=== PATIENT | male | born 1955 | race Caucasian/White ===

== ENCOUNTER 2021-03-03 07:11 | Outpatient (CLI) | payer MEDICARE, SELFPAY ==
--- NOTE | 2021-03-03 07:15 | XR_ITS ---
WS: [id number] KUB, AP view, 03/03/2021 Clinical Data: KIDNEY STONE Comparison: None. Findings: There is a 0.7 cm calcification overlying the left kidney. Fecal material and air from the colon obsc ures detail over both kidneys. There are probable phleboliths in the true pelvis. Degenerative change and a slight levoscoliosis of the lumbar spine are seen. XR/XR KUB [id number] Impression: Probable small left renal calculus.
== END 2021-03-03 07:12 | disposition home or self-care (01) ==
LOC: RAD 07:18
PROVIDERS: PCP Nurse Practitioner Family; Visit Provider Urology
DX: N20.0 Calculus of kidney (principal)
CPT/HCPCS: 74018; 81003

== ENCOUNTER 2021-06-02 08:26 | Outpatient (CLI) | payer MEDICARE, OTHER, SELFPAY ==
--- NOTE | 2021-06-02 08:30 | XR_ITS ---
WS: [id number] KUB, AP view, 06/02/2021 Clinical Data: URETERAL STONE Comparison: KUB, 03/03/2021. Findings: There is a 0.7 cm calcification overlying the left kidney. The right kidney is obscured by fecal mate rial in colon gas. There are phleboliths in the true pelvis. XR/XR KUB [id number] Impression: Probable left renal calcification.
== END 2021-06-02 08:27 | disposition home or self-care (01) ==
LOC: RAD 08:34
PROVIDERS: PCP Nurse Practitioner Family; Visit Provider Urology
DX: N20.1 Calculus of ureter (principal)
CPT/HCPCS: 74018; G0103

== ENCOUNTER → 2021-06-14 14:52 | Outpatient (BNVA) | payer MEDICARE, OTHER, SELFPAY | PROVIDERS: PCP Nurse Practitioner Family; Visit Provider Nurse Practitioner Family | DX: I10 Essential (primary) hypertension (principal) | CPT/HCPCS: 80048 ==

== ENCOUNTER → 2021-12-09 08:56 | Outpatient (BNVA) | payer MEDICARE, OTHER, SELFPAY | PROVIDERS: PCP Nurse Practitioner Family; Visit Provider Nurse Practitioner Family | DX: I10 Essential (primary) hypertension (principal) | CPT/HCPCS: 80053 ==

== ENCOUNTER → 2022-02-22 12:51 | Outpatient (BNVA) | payer MEDICARE, OTHER, SELFPAY | PROVIDERS: PCP Nurse Practitioner Family; Visit Provider Urology | DX: R97.20 Elevated prostate specific antigen [PSA] (principal); N20.1 Calculus of ureter; C61 Malignant neoplasm of prostate; N20.0 Calculus of kidney | CPT/HCPCS: 81003; 84153 ==

== ENCOUNTER 2022-12-09 21:32 | Emergency (ER) | payer MEDICARE, OTHER, SELFPAY ==
[2022-12-09 21:34] VITALS: BP 208/101; PULSE 74; RESP 18; TEMP 36.3; O2SAT 94; BMI 29.1
--- NOTE | 2022-12-09 21:54 | XRR_ITS ---
PROCEDURE INFORMATION: Exam: XR Chest Exam date and time: 12/09/2022 10:12 PM Age: 67 years old Clinical indication: Other: Syncope TECHNIQUE: Imaging protocol: Radiologic exam of the chest. Views: 1 view. COMPARISON: CR XR KUB [id number] 06/02/2021 8:47 AM FINDINGS: Lungs: Bibasilar calcified granulomas noted. Small focal left basilar opacity. Pleural spaces: No pleural effusion. No pneumothorax. Heart/Mediastinum: No cardiomegaly. Bones/joints: Visualized osseous structures are intact. XR/XR chest 1V portable [id number] IMPRESSION: Small focal left basilar opacity which may reflect atelectasis or infiltrate.
--- NOTE | 2022-12-09 21:55 | ECG_ITS ---
[facility] Test Date: 2022-12-09 Pat Name: Jona Simmons Department: Room: Gender: Male Teacher Tutor: : [id number] Requested By: Toby Rodriguez Order Number: [id number] Arben MD: Curt Vazquez M.D. Measurements Intervals Ora Rate: 73 P: 49 NM: 172 QRS: 20 QRSD: 102 T: 18 QT: 387 QTc: 429 Interpretive Statements SINUS RHYTHM INCOMPLETE RIGHT BUNDLE BRANCH BLOCK [90+ ms QRS DURATION, TERMINAL R IN V1/V2, 40+ ms S IN I/aVL/V4/V5/V6] No previous ECG available for comparison Electronically Signed On 12-09-2022 21:56:34 OPERATING ROOM SURGICAL TECHNICIAN by Curt Vazquez M.D. [id number]
[2022-12-09 22:04] VITALS: BP 152/88; PULSE 76; RESP 18; O2SAT 94
[2022-12-09 22:06] LABS: Basophils # 0.1 10^3/uL (0.0-0.1); Basophils % 1.1 %; Eosinophils # 0.3 10^3/uL (0.0-0.8); Eosinophils % 3.6 %; Hematocrit 40.1 % (42.0-52.0); Hemoglobin 13.3 g/dL (11.7-16.6); Lymphocytes # 1.3 10^3/uL (0.8-4.8); Lymphocytes % 18.2 %; Mean Corpuscular HGB Conc 33.2 g/dL (30.0-36.0); Mean Corpuscular Hemoglobin 31.2 pg (28.0-34.0); Mean Corpuscular Volume 94.1 fl (80-94); Mean Platelet Volume 10.2 fL (7.4-10.4); Monocytes # 0.5 10^3/uL (0.2-0.9); Monocytes % 7.2 %; Neutrophils # 5.01 10^3/uL (1.8-7.7); Neutrophils % 69.6 %; Nucleated Red Blood Cells % 0 %; Platelet Count 203 10^3/cmm (130-400); Red Blood Count 4.26 10^6/uL (4.1-5.3); Red Cell Distribution Width 13.5 % (12.1-15.1); White Blood Count 7.2 10^3/uL (4.0-10.0)
--- NOTE | 2022-12-09 22:08 | ED_ITS ---
HPI - Syncope General: Chief Complaint: Syncope Stated Complaint: SYNCOPE Time Seen by Provider: 12/09/22 21:39 History of Present Illness: 67-year-old male gentleman with a history of a syncopal episode at home. He was sitting in a chair, began to breathe heavily he says. He was having vision problems as well, in which his visual bauman turned white. He woke up on the floor next. Family witnessed the event, and states he was out for about 2 minutes. There was no shaking or tonic-clonic movement. He had a pulse and was breathing through the episode. states that just previous to the episode, he had taken a couple of hits off of a marijuana joint. EMS logged low blood pressures when they stood him up, and encouraged him to come to the emergency department. MD complaint: loss of consciousness and collapsed Onset (ago): minute(s) Duration of episode: 120 -: second(s) Description of event: other Prodromal symptoms: vision changes and shortness of breath Witnessed: Yes - by Bystander Context: at rest Injuries sustained associated with event: none Associated symptoms: Reports short of breath; Deny abdominal pain, chest pain, fever(s), headache(s), nausea, vertigo or weakness History: other Treatments prior to arrival: IV fluids Review of Systems Const: Denies: fever(s) Eyes: Reports: change in vision Card: Denies: chest pain or palpitations Resp: Reports: dyspnea (resolved); Denies: productive cough or non-productive cough GI: Denies: abdominal pain or nausea Neuro: Denies: headache(s) or vertigo [facility] ED PFSH: Medical History Hx of angiography Hx of hepatitis C treatment in 2011 Hypertension Hypertension Prostate cancer Ozzie 4+3 at diagnosis to the thousand 17. PSA was 5.6. No information about FADI or volume. Treated with combination therapy external beam radiation and 2 Lupron injections. Quit the Lupron early due to side effects. Surgical History History of repair of ACL Hx of inguinal hernia repair Hx of tonsillectomy Family History Father , at age 53 CAD (coronary artery disease) Mother , at age 67 CAD (coronary artery disease) Diabetes Social History Smoking and tobacco status: former smoker Alcohol intake: current Alcohol intake frequency: few times a week Marital status: Current occupational status: retired History of recent travel: No Physical Exam Const: COMMON NORMALS: no acute distress and alert GENERAL APPEARANCE: cooperative; not ill appearing and not frail appearing HENMT: COMMON NORMALS: normocephalic, atraumatic and Normal external nose present HEAD & SCALP: normocephalic and atraumatic FACE & SINUS: normal facial exam and face symmetric NOSE: Normal external nose present Eye: COMMON NORMALS: Equal, round and reactive pupils present and EOMs intact bilaterally PUPIL: Yes Equal, round and reactive pupils present Neck/C-Spine: GENERAL: Yes trachea midline Chest: CHEST: Yes Symmetrical chest wall rise Resp: COMMON NORMALS: normal respiratory effort, No retractions, No use of accessory muscles and clear to auscultation bilaterally AUSCULTATION: clear to auscultation bilaterally Cardio: COMMON NORMALS: regular rate and regular rhythm RATE: regular rate RHYTHM: regular rhythm GI: COMMON NORMALS: Normal to inspection, nondistended, normoactive bowel sounds present Extremity: COMMON NORMALS: no pedal edema Neuro: MARIA A COMA SCALE: document GCS findings Maria A coma scale eye opening: Spontaneous Maria A coma scale verbal response: Orientated Maria A coma scale motor response: Obey commands Maria A coma scale total score: 15 SENSORIUM/ORIENTATION: Yes alert COORDINATION/BALANCE: [id number] test normal and yypw-dj-[id number] test normal SPEECH: speech normal GAIT: Yes Unable to assess gait SENSORY EXAM: Yes extremities (intact) MOTOR EXAM: 5/5 motor strength present throughout, no tremor noted and Normal motor muscle tone present throughout COORDINATION: [id number]-[id number] test normal and adpp-lw-xyuw test normal Psych: COMMON NORMALS: speech normal SPEECH: Yes normal speech Skin: COMMON NORMALS: no rashes or lesions noted GENERAL SKIN EXAM: no rashes or lesions noted Course Vital Signs: Vital signs: Vital Signs Temperature 97.4 F L 12/09/22 21:34 Pulse Rate 76 12/09/22 22:04 Respiratory Rate 18 12/09/22 22:04 Blood Pressure 152/88 12/09/22 22:04 Pulse Oximetry 94 02/10/23 22:04 Oxygen Delivery Me thod 12/09/22 22:04 MDM - Syncope Medical Decision Making 67-year-old male with a syncopal episode at home. He has returned to baseline essentially now. Blood pressure is 142/73, he is not tachycardic. Saturations are 92 to 93% on room air. Chest x-ray shows small left basilar atelectasis. His CBC is normal. His BMP is normal. Liver enzymes are normal. His EKG is essentially normal. His troponin is 6. He will be allowed home. He is asymptomatic at this point. Syncope likely due to pleasure to marijuana. Lab Data 12/09/22 21:45 12/09/22 21:45 Radiology Impressions Chest X-Ray 12/09/22 21:54 IMPRESSION: Small focal left basilar opacity which may reflect atelectasis or infiltrate. Laboratory Results WBC 7.2 10^3/uL (4.0-10.0) 12/09/22 21:45 RBC 4.26 10^6/uL (4.1-5.3) 12/09/22 21:45 Hgb 13.3 g/dL (11.7-16.6) 12/09/22 21:45 Hct 40.1 % (42.0-52.0) L 12/09/22 21:45 MCV 94.1 fl (80-94) H 12/09/22 21:45 MCH 31.2 pg (28.0-34.0) 12/09/22 21:45 MCHC 33.2 g/dL (30.0-36.0) 12/09/22 21:45 RDW 13.5 % (12.1-15.1) 12/09/22 21:45 Plt Count 203 10^3/cmm (130-400) 12/09/22 21:45 MPV 10.2 fL (7.4-10.4) 12/09/22 21:45 Neut % (Auto) 69.6 % 12/09/22 21:45 Lymph % (Auto) 18.2 % 12/09/22 21:45 [place] % (Auto) 7.2 % 12/09/22 21:45 Eos % (Auto) 3.6 % 12/09/22 21:45 Baso % (Auto) 1.1 % 12/09/22 21:45 Neut # (Auto) 5.01 10^3/uL (1.8-7.7) 12/09/22 21:45 Lymph # (Auto) 1.3 10^3/uL (0.8-4.8) 12/09/22 21:45 [place] # (Auto) 0.5 10^3/uL (0.2-0.9) 12/09/22 21:45 Eos # (Auto) 0.3 10^3/uL (0.0-0.8) 12/09/22 21:45 Baso # (Auto) 0.1 10^3/uL (0.0-0.1) 12/09/22 21:45 Nucleated RBC % (auto) 0 % 12/09/22 21:45 Nucleated RBCs # 0.0 /100WBC 12/09/22 21:45 Sodium 138 mmol/L (136-145) 12/09/22 21:45 Potassium 3.9 mmol/L (3.5-5.1) 12/09/22 21:45 Chloride 100 mmol/L (98-107) 12/09/22 21:45 Carbon Dioxide 26 mmol/L (22-29) 12/09/22 21:45 Anion Gap 15.9 (5-19) 12/09/22 21:45 BUN 19 mg/dL (8-23) 12/09/22 21:45 Creatinine 0.8 mg/dL (0.7-1.2) 12/09/22 21:45 GFR Calculation 96.7 mL/min (90-130) 12/09/22 21:45 Glucose 139 mg/dL (65-115) H 12/09/22 21:45 Calculated Osmolality 291 mOsm/kg (285-295) 12/09/22 21:45 Calcium 9.1 mg/dL (8.5-10.5) 12/09/22 21:45 Magnesium 2.1 mg/dL (1.7-2.3) 12/09/22 21:45 Total Bilirubin 0.4 mg/dL (0.15-1.2) 12/09/22 21:45 AST 17 U/L (0-40) 12/09/22 21:45 ALT 15 U/L (0-41) 12/09/22 21:45 Alkaline Phosphatase 86 U/L (40-130) 12/09/22 21:45 Troponin T Gen 5 ng/L 6 ng/L (0-15) 12/09/22 21:45 Total Protein 6.6 g/dL (6.6-8.7) 12/09/22 21:45 Albumin 4.0 g/dL (3.5-5.2) 12/09/22 21:45 Globulin 2.6 g/dL (1.3-4.6) 12/09/22 21:45 Discharge Plan Discharge Patient Disposition: Home Clinical Impression: Syncope Condition: Stable Prescriptions: No Action multivitamin Tablet 1 tab PO DAILY Curcumin 95 % powder miscellaneous DAILY mv, min cmb#[id number] 3 0.5-30-150 mg capsule PO DAILY blood flow 7 PO DAILY coconut oil 1,000 mg capsule PO DAILY aspirin 81 mg tablet,delayed release (DR/EC) 81 mg PO DAILY nebivolol 5 mg tablet See Rx Instructions .ROUTE .COMPLEX Qty: 15 0RF Dose Instruction: TAKE 1 TABLET EVERY DAY Rx Instructions: TAKE 1 TABLET EVERY DAY; PATIENT NEEDS APPT Discharge Orders: Discharge ED (Routine); Ordered 12/09/22 Ordered By: Toby Dalal Referrals: Olga Catalan FNP [Primary Care Provider] - 4-7 days Patient Instructions: Syncope (ED) Activity Restrictions/Additional Instructions: Drink plenty of clear liquids for the next 24 to 48 hours. Avoid [address] a car. Return for repeated episodes of syncope, development of chest pain, mental status changes, weakness, language or continued vision problems, any other concerning symptoms. Coding Level of Care Code ED Medical Records Library Professor for Juan Eli
[2022-12-09 22:19] LABS: Troponin T (5th) Once 6 ng/L (0-15)
[2022-12-09 22:31] LABS: Alanine Aminotransferase 15 U/L (0-41); Alkaline Phosphatase 86 U/L (40-130); Aspartate Amino Transferase 17 U/L (0-40); Blood Urea Nitrogen 19 mg/dL (8-23); Calcium 9.1 mg/dL (8.5-10.5); Carbon Dioxide 26 mmol/L (22-29); Chloride 100 mmol/L (98-107); Globulin 2.6 g/dL (1.3-4.6); Glomerular Filtration Rate 96.7 mL/min (90-130); Glucose 139 mg/dL (65-115); Magnesium 2.1 mg/dL (1.7-2.3); Osmolality Calculated 291 mOsm/kg (285-295); Sodium 138 mmol/L (136-145); Total Bilirubin 0.4 mg/dL (0.15-1.2); Total Protein 6.6 g/dL (6.6-8.7)
[2022-12-09 22:36] LABS: Anion Gap 15.9 (5-19); Potassium 3.9 mmol/L (3.5-5.1)
== END 2022-12-09 23:32 | disposition home or self-care (01) ==
PROVIDERS: Emergency Provider Emergency Medicine; PCP Nurse Practitioner Family
DX: R55 Syncope and collapse (principal); Z79.82 Long term (current) use of aspirin; Z86.19 Personal history of other infectious and parasitic diseases; I10 Essential (primary) hypertension; Z85.46 Personal history of malignant neoplasm of prostate; Z87.891 Personal history of nicotine dependence
CPT/HCPCS: 71045; 80053; 83735; 84484; 85025; 93005; 99285

== ENCOUNTER → 2022-12-28 09:39 | Outpatient (BNVA) | payer MEDICARE, OTHER, SELFPAY | PROVIDERS: PCP Nurse Practitioner Family; Visit Provider Nurse Practitioner Family | DX: R73.09 Other abnormal glucose (principal) | CPT/HCPCS: 83036 ==

== ENCOUNTER → 2023-02-15 15:09 | Outpatient (BNVA) | payer MEDICARE, OTHER, SELFPAY | PROVIDERS: PCP Nurse Practitioner Family; Visit Provider Urology | DX: C61 Malignant neoplasm of prostate (principal) | CPT/HCPCS: 84153 ==

== ENCOUNTER 2023-02-21 12:51 | Outpatient (CLI) | payer MEDICARE, OTHER, SELFPAY | END 2023-02-21 12:52 | disposition home or self-care (01) | PROVIDERS: PCP Nurse Practitioner Family; Visit Provider Urology | DX: N20.2 Calculus of kidney with calculus of ureter (principal); N20.1 Calculus of ureter; C61 Malignant neoplasm of prostate | CPT/HCPCS: 74018; 81003; 99213 ==

== ENCOUNTER → 2023-07-14 08:50 | Outpatient (BNVA) | payer MEDICARE, OTHER, SELFPAY | PROVIDERS: PCP Nurse Practitioner Family; Visit Provider Nurse Practitioner Family | DX: I10 Essential (primary) hypertension (principal); E55.9 Vitamin D deficiency, unspecified | CPT/HCPCS: 80053; 80061; 82306 ==

== ENCOUNTER → 2023-10-17 09:04 | Outpatient (BNVA) | payer MEDICARE, OTHER, SELFPAY | PROVIDERS: PCP Nurse Practitioner Family; Visit Provider Nurse Practitioner Family | DX: I10 Essential (primary) hypertension (principal); E78.2 Mixed hyperlipidemia | CPT/HCPCS: 80053; 80061 ==

== ENCOUNTER → 2024-01-09 09:42 | Outpatient (BNVA) | payer MEDICARE, OTHER, SELFPAY | PROVIDERS: PCP Nurse Practitioner Family; Visit Provider Nurse Practitioner Family | DX: Z12.5 Encounter for screening for malignant neoplasm of prostate (principal); E78.5 Hyperlipidemia, unspecified; C61 Malignant neoplasm of prostate | CPT/HCPCS: 80061; G0103 ==

== ENCOUNTER → 2024-08-06 11:07 | Outpatient (BNVA) | payer MEDICARE, OTHER, SELFPAY | PROVIDERS: PCP Nurse Practitioner Family; Visit Provider Nurse Practitioner Family | DX: I10 Essential (primary) hypertension (principal); R53.83 Other fatigue | CPT/HCPCS: 80053; 80061; 84439; 84443 ==

== ENCOUNTER → 2024-11-13 09:45 | Outpatient (BNVA) | payer MEDICARE, OTHER, SELFPAY | PROVIDERS: PCP Nurse Practitioner Family; Visit Provider Nurse Practitioner Family | DX: I10 Essential (primary) hypertension (principal); E55.9 Vitamin D deficiency, unspecified | CPT/HCPCS: 80053; 80061; 82306 ==

== ENCOUNTER 2024-11-20 11:29 | Outpatient (CLI) | payer MEDICARE, SELFPAY ==
--- NOTE | 2024-11-20 11:34 | XR_ITS ---
WS: [id number] Lumbar spine, 5 views including both obliques, 11/20/2024 Clinical Data: M54.9 - Dorsalgia, unspecified Comparison: None. Findings: No compression fractures or subluxation is seen. There is degenerative disc narrowing at multiple lev els from L1-L2 through L3-L4. There are anterior osteophytes L1-L4. The transverse processes and SI joints are normal. The oblique films show no spondylolysis. There is a minimal levoscoliosis. There are calcifications o verlying the left kidney. XR/XR lumbar spine min 4V [id number] Impression: 1. Osteoarthritis and multilevel degenerative disc narrowing. 2. Negative for spondylolysis on oblique films. 3. Minimal levoscoliosis.
== END 2024-11-20 11:30 | disposition home or self-care (01) ==
LOC: RAD 11:32
PROVIDERS: PCP Nurse Practitioner Family; Visit Provider Nurse Practitioner Family
DX: M51.369 Other intervertebral disc degeneration, lumbar region without mention of lumbar back pain or lower extremity pain (principal); M19.90 Unspecified osteoarthritis, unspecified site; M25.78 Osteophyte, vertebrae; N28.89 Other specified disorders of kidney and ureter
CPT/HCPCS: 72110

== ENCOUNTER 2024-11-30 23:55 | Outpatient (RCR) | payer MEDICARE, SELFPAY | END 2024-12-27 23:59 | disposition home or self-care (01) | LOC: WPT 23:55 | PROVIDERS: PCP Nurse Practitioner Family; Visit Provider Nurse Practitioner Family | DX: M54.59 Other low back pain (principal) | CPT/HCPCS: 97110; 97162 ==

== ENCOUNTER → 2025-02-11 10:03 | Outpatient (BNVA) | payer MEDICARE, SELFPAY | PROVIDERS: PCP Nurse Practitioner Family; Visit Provider Nurse Practitioner Family | DX: I10 Essential (primary) hypertension (principal); E78.2 Mixed hyperlipidemia; C61 Malignant neoplasm of prostate | CPT/HCPCS: 80053; 80061; 84153; 85025 ==